=== PATIENT | male | born 1955 | race Caucasian/White ===

== ENCOUNTER 2016-03-06 18:13 | Emergency (ER) | payer OTHER ==
[~2016-03-06] VITALS: Ht 177.8 cm; Wt 64.5 kg
[~2016-03-06 18:13] MED LIST: ASPIRIN EC 81 MG TAB PO; CITALOPRAM HBR40 MG PO; ELAVIL; ENALAPRIL MALE2.5 MG PO; GABAPENTIN; IMDUR; LIPITOR; LOPRESSOR; LOPRESSOR25 MG PO; LYRICA; MOBIC; NEXIUM; NORCO 5/3251 TABLET PO; NTG
[2016-03-06] MEDS ORDERED: KEFLEX500 MG PO (20:31)
[2016-03-06 21:24] VITALS: BP 141/80
== END 2016-03-06 21:32 | disposition home or self-care (01) ==
LOC: EME → EDBD 18:13 → EME 18:13
PROC: 0HQ0XZZ Repair Scalp Skin, External Approach (ICD-10-PCS; principal; 2016-03-06)
PROC: 3E0234Z Introduction of Serum, Toxoid and Vaccine into Muscle, Percutaneous Approach (ICD-10-PCS; 2016-03-06)
DX: S01.01XA Laceration without foreign body of scalp, initial encounter (principal); W17.89XA Other fall from one level to another, initial encounter; F10.99 Alcohol use, unspecified with unspecified alcohol-induced disorder; Z23 Encounter for immunization; I10 Essential (primary) hypertension; F17.200 Nicotine dependence, unspecified, uncomplicated; Z79.82 Long term (current) use of aspirin
CPT/HCPCS: 70450; 99281; 99285

== ENCOUNTER 2016-03-13 14:43 | Emergency (ER) | payer OTHER ==
[~2016-03-13] VITALS: Ht 180.3 cm; Wt 64.5 kg
[~2016-03-13 14:43] MED LIST changes: +KEFLEX500 MG PO
[2016-03-13 15:01] VITALS: BP 99/66
== END 2016-03-13 16:19 | disposition home or self-care (01) ==
LOC: EME 14:43
DX: S01.01XD Laceration without foreign body of scalp, subsequent encounter (principal); W17.89XD Other fall from one level to another, subsequent encounter; Z48.02 Encounter for removal of sutures; I10 Essential (primary) hypertension; Z95.5 Presence of coronary angioplasty implant and graft; F17.200 Nicotine dependence, unspecified, uncomplicated; Z79.82 Long term (current) use of aspirin
CPT/HCPCS: 99281; 99284

== ENCOUNTER 2016-06-25 16:51 | Emergency (ER) | payer OTHER ==
[~2016-06-25] VITALS: Ht 175.3 cm; Wt 62.4 kg
[2016-06-25 17:42] LABS: HEMATOCRIT 39.4 % (38.0-50.0); MCH 31.7 PG (29.0-34.0); MCHC 34.3 G/DL (30.0-36.0); MCV 92.5 FL (86-99); MEAN PLAT.VOLUME 8.7 uM^3 (9.0-12.4); PLATELET COUNT 226 K/uL (156-360); RBC DIS.WIDTH-CV 13.4 % (11.8-14.6); RBC DIS.WIDTH-SD 45.5 % (39-53); RED BLOOD COUNT 4.26 M/uL (4.00-5.50); WHITE BLOOD COUNT 9.1 K/uL (4.1-10.2)
[2016-06-25 17:52] LABS: CHLORIDE 102 mEq/L (99-109); POTASSIUM 4.3 mEq/L (3.7-5.4); SODIUM 134 mEq/L (136-147)
[2016-06-25 17:54] LABS: GLUCOSE 82 mg/dL (70-99)
[2016-06-25 17:55] LABS: ANION GAP 8 MEQ/L (2-14)
[2016-06-25 17:58] LABS: GFR ESTIMATE (CALCULATED) > 59 mL/min/; UREA NITROGEN (BUN) 9 mg/dL (9-23)
[2016-06-25 20:58] VITALS: BP 92/65
== END 2016-06-25 20:58 | disposition home or self-care (01) ==
LOC: EME 16:51
PROVIDERS: Physician Assistant
DX: I70.212 Atherosclerosis of native arteries of extremities with intermittent claudication, left leg (principal); F32.9 Major depressive disorder, single episode, unspecified; E78.5 Hyperlipidemia, unspecified; I10 Essential (primary) hypertension; I25.2 Old myocardial infarction; K21.9 Gastro-esophageal reflux disease without esophagitis; M79.7 Fibromyalgia; R53.1 Weakness; B94.8 Sequelae of other specified infectious and parasitic diseases; Z86.61 Personal history of infections of the central nervous system; I25.10 Atherosclerotic heart disease of native coronary artery without angina pectoris; F17.210 Nicotine dependence, cigarettes, uncomplicated
CPT/HCPCS: 80048; 85027; 93926; 99281; 99284

== ENCOUNTER → 2016-06-28 | Outpatient (CLI) | payer MEDICARE, OTHER | END | disposition home or self-care (01) | LOC: CDC 15:13 | DX: I49.9 Cardiac arrhythmia, unspecified (principal) | CPT/HCPCS: 93000 ==